=== PATIENT | female | born 1950 | race Caucasian/White ===

== ENCOUNTER 2017-05-18 10:32 | Emergency (ER) | payer MEDICARE, OTHER ==
[~2017-05-18] VITALS: Ht 157.5 cm; Wt 90.9 kg
[2017-05-18 11:51] VITALS: BP 145/97
== END 2017-05-18 12:15 | disposition home or self-care (01) ==
LOC: ED 10:32
DX: S80.01XA Contusion of right knee, initial encounter (principal); S60.311A Abrasion of right thumb, initial encounter; E11.9 Type 2 diabetes mellitus without complications; I10 Essential (primary) hypertension; G70.00 Myasthenia gravis without (acute) exacerbation; W01.0XXA Fall on same level from slipping, tripping and stumbling without subsequent striking against object, initial encounter; Y92.009 Unspecified place in unspecified non-institutional (private) residence as the place of occurrence of the external cause

== ENCOUNTER 2020-06-04 18:46 | Emergency (ER) | payer MEDICARE, OTHER ==
[~2020-06-04] VITALS: Ht 157.5 cm; Wt 100.0 kg
[2020-06-04 21:15] VITALS: BP 173/78
== END 2020-06-04 21:33 | disposition home or self-care (01) ==
LOC: ED 18:46
PROC: 0HQ1XZZ Repair Face Skin, External Approach (ICD-10-PCS; principal; 2020-06-04)
DX: S01.81XA Laceration without foreign body of other part of head, initial encounter (principal); S16.1XXA Strain of muscle, fascia and tendon at neck level, initial encounter; S80.11XA Contusion of right lower leg, initial encounter; S39.012A Strain of muscle, fascia and tendon of lower back, initial encounter; I10 Essential (primary) hypertension; E11.9 Type 2 diabetes mellitus without complications; W01.198A Fall on same level from slipping, tripping and stumbling with subsequent striking against other object, initial encounter; Y92.009 Unspecified place in unspecified non-institutional (private) residence as the place of occurrence of the external cause